=== PATIENT | male | born 1985 | race Hispanic/Latino ===

== ENCOUNTER 2018-05-13 16:12 | Outpatient (CLI) | payer MEDICAID | END 2018-05-13 16:13 | disposition home or self-care (01) | LOC: C.LAB 16:12 | DX: B18.2 Chronic viral hepatitis C (principal) ==

== ENCOUNTER 2018-08-20 14:00 | Outpatient (CLI) | payer MEDICAID | END 2018-08-20 14:01 | disposition home or self-care (01) | LOC: C.LAB 14:00 | DX: B18.2 Chronic viral hepatitis C (principal) ==